=== PATIENT | male | born 1940 | race African-American/Black ===

== ENCOUNTER 2022-09-17 00:10 | Emergency (ER) | payer MEDICARE, OTHER, SELFPAY ==
--- NOTE | ~2022-09-17 | XR_ITS ---
EXAMINATION: XR pelvis 1-2V DATE: 09/17/2022 01:20 INDICATION: Pelvis injury. Fall. TECHNIQUE: An anteroposterior view of the pelvis was obtained. COMPARISON: None. FINDINGS: There is lumbar dextroscoliosis. There are changes of anterior and posterior fusion procedu res in lumbar spine. No fracture. There is mild osteoarthritis of the hips. IMPRESSION: 1. Mild osteoarthritis of the hips. Reviewed, dictated and finalized at location A.
--- NOTE | ~2022-09-17 | XR_ITS ---
EXAMINATION: XR chest 1V portable DATE: 09/17/2022 01:20 INDICATION: Fall. TECHNIQUE: A single frontal view of the chest was obtained. COMPARISON: None. FINDINGS: There is mild atelectasis in the lower lung zones. No pleural effusion or pneumothorax. The heart size is normal. There are surgical clips in the epigastric region. IMPRESSION: 1. Mild atelectasis in the lower lung zones. Reviewed, dictated and finalized at location A.
[2022-09-17 00:10] VITALS: BP 164/89; PULSE 90; RESP 23; TEMP 37.9; O2SAT 99
[2022-09-17] MEDS: ACETAMINOPHEN 500 MG TABLET 1000 MG PO (00:52)
[2022-09-17] MEDS: SODIUM CHLORIDE 0.9% IV 1,000 ML 999 ML IV CONT (00:52)
[2022-09-17 01:03] LABS: Basophils Absolute Auto 0.1 K/mm3 (0.0-0.1); Basophils Percent Auto 0.9 % (0.2-1.2); Eosinophils Absolute Auto 0.2 K/mm3 (0-0.3); Hematocrit 35.9 % (42.0-52.0); Hemoglobin 11.2 g/dL (14.0-18.0); Immature Granulocyte Absolute 0.02 K/mm3 (0.00-0.031); Immature Granulocyte Percent A 0.3 % (0-0.5); Lymphocytes Absolute Auto 0.91 K/mm3 (0.9-3.2); Lymphocytes Percent Auto 11.5 % (18.3-44.2); Mean Corpuscular HGB Conc 31.2 g/dl (32-36); Mean Corpuscular Hemoglobin 28.4 pg (26-34); Mean Corpuscular Volume 91.1 fl (80-100); Mean Platelet Volume 11.7 fl (7.4-10.4); Monocytes Absolute Auto 0.7 K/mm3 (0.1-0.6); Monocytes Percent Auto 9.2 % (2.6-8.5); Neutrophils Percent Auto 76.1 % (45.5-73.1); Platelet Count Result 229 k/mm3 (150-375); Red Blood Count 3.94 M/mm3 (4.6-6.20); Red Cell Distribution Width 16.6 % (11.5-14.5); White Blood Count 7.9 K/mm3 (4.5-10.0)
[2022-09-17 01:13] LABS: Anion Gap 1 mmol/L (8-16); Blood Urea Nitrogen 17 mg/dL (9-20); Calcium 9.6 mg/dL (8.4-10.2); Carbon Dioxide 32 mmol/L (22-30); Chloride 103 mmol/L (98-107); Estimated CRCL calculation 42 ml/min; Estimated Glomerular Filt Rate > 60; Glucose 88 mg/dL (65-110); Lipase 79 U/L (23-300); Magnesium 2.3 mg/dL (1.6-2.3); Potassium 3.9 mmol/L (3.4-5.0); Sodium 136 mmol/L (137-145)
[2022-09-17 01:14] LABS: Appearance Urine Cloudy (Clear); Bacteria Urine None Seen /hpf; Bilirubin Urine Negative (Negative); Blood Urine Negative (Negative); Color Urine Yellow (Yellow); Glucose Urine UA Negative (Negative); Ketones Urine Negative (Negative); Leukocyte Esterase Ur Negative LEU/UL (Negative); Nitrate Urine Negative (Negative); Non Pathogenic Casts 0-2; Protein Urine Negative (Negative); RBC Urine 0-2 /hpf (0-2); Specific Grav Ur 1.012 (1.001-1.035); Squamous Epithelial Cell Urine None seen /hpf (Few); Urobilinogen Urine 0.2 mg/dL (<2.0); WBC Urine 0-5 /hpf; pH Urine 7.5 (5.0-9.0)
[2022-09-17 01:20] LABS: Add Urine Microscopic? YES
[2022-09-17 01:39] LABS: Influenza A QL RT-PCR Negative (Negative); Influenza B QL RT-PCR Negative (Negative); RSV RNA, RT-PCR Negative (Negative); SARS-CoV-2 RNA PCR Positive (Negative)
[2022-09-17 02:08] VITALS: BP 163/95; PULSE 84; RESP 18; O2SAT 99
[2022-09-17 02:19] VITALS: TEMP 37.8
--- NOTE | 2022-09-17 02:25 | ED.GENADULT ---
HPI - General Adult General Chief complaint: Fall Stated complaint: fall Time Seen by Provider: 09/17/22 00:42 History of Present Illness HPI narrative: This an 82-year-old male presenting to ED after having a fall at home. Patient was tempted to go to the bathroom when he tripped. He then caught himself with his hands. Did not strike his head. Did not lose consciousness. Patient is denying fevers, chest pain difficulty breathing abdominal pain or urinary complaints. The family called EMS because they were unable to get him back up. EMS recommended he come to the hospital. At this time patient is resting comfortably with no complaints. Related Data Home Medications Medication Instructions Recorded Confirmed atorvastatin 40 mg tablet 40 mg PO DAILY 09/17/22 cyclobenzaprine 10 mg tablet 10 mg PO TID 09/17/22 gabapentin 300 mg capsule 300 mg PO BID 09/17/22 tamsulosin 0.4 mg PO DAILY 09/17/22 Allergies Allergy/AdvReac Type Severity Reaction Status Date / Time morphine Allergy Hives Verified 09/17/22 00:24 aspirin AdvReac Other Verified 09/17/22 00:24 [facility] Past Medical History Medical History (Updated 09/17/22 @ 02:43 by Joel Franco MD) Chronic back pain Exam Narrative: APPEARANCE: No apparent distress. Patient appears younger than his stated age Head: atraumatic. EYES: EOMI, NOSE: Atraumatic NECK: Trachea midline RESPIRATORY: No increased rate of breathing, clear to auscultation CARDIOVASCULAR: RRR, no peripheral edema ABDOMINAL: Non-distended, soft nontender no guarding or rebound MUSCULOSKELETAl: No obvious deformities NEURO: Alert. Cranial nerves 2-12 grossly intact. Sensation light touch, motor function cerebellar function intact for 4 extremities. Gait exam was normal. SKIN:: Warm, dry. Normal color PSYCHIATRIC: Normal affect Course Vital Signs Vital signs: Vital Signs Temperature 100.2 F H 09/17/22 00:10 Pulse Rate 90 09/17/22 00:10 Respiratory Rate 23 H 09/17/22 00:10 Blood Pressure 164/89 H 09/17/22 00:10 Pulse Oximetry 99 09/17/22 00:10 Oxygen Delivery Room Air 09/17/22 00:10 Temperature 100.0 F H 09/17/22 02:19 Pulse Rate 84 09/17/22 02:08 Respiratory Rate 18 09/17/22 02:08 Blood Pressure 163/95 H 09/17/22 02:08 Pulse Oximetry 99 09/17/22 02:08 Oxygen Delivery Room Air 09/17/22 00:10 Medical Decision Making [facility] Narrative Medical decision making narrative: -Presentation: 82-year-old male presenting with a fall at home. He was found to be mildly febrile in triage. Basic lab work, chest x-ray/pelvic XR, urinalysis and viral swabs will be obtained. -DDX includes but is not limited to: Pneumonia, UTI, viral syndrome, clickfracture -Co-morbidities complicating care: advanced age -Social determinants of health: patient lives with his Diamond, he is a retired computer programming supervisor -External Chart Review: none -Hx from independent Sources: Diamond @ bedside -Discussion of Management/Consultants: none -Independent interpretation of studies: CBC within normal limits. Metabolic panel is unremarkable. Urinalysis was not indicative of infection. COVID was positive. Chest x-ray was negative for acute cardiopulmonary process. Pelvis x-ray did not reveal a fracture. Dx tests considered but not ordered: -Procedures: -Interventions: 1 L normal saline, 1000 mg Tylenol -Shared decision making / Disposition: patient's workup was positive for COVID. The patient is not in respiratory distress and is well appearing. Vital signs stable. Chest x-ray and lung exam were normal.We did ambulate him around the emergency department and he did well without issue. I discussed discharge with the family with the caveat that if he is to worsen he should return immediately. They are in agreement. -RX Vital Signs Vital Signs: Vital Signs Temperature 100.2 F H 09/17/22 00:10 Pulse Rate 90 09/17/22 00:10 R
--- NOTE | 2022-09-17 02:32 | PC.NURSE ---
Ambulated pt around ED. Pt had steady gait the entire time. No difficulty walking or dizziness. Provider aware.
[2022-09-17 02:54] VITALS: BP 131/91; PULSE 86; RESP 18; TEMP 37.3; O2SAT 99
== END 2022-09-17 02:54 | disposition home or self-care (01) ==
PROVIDERS: Emergency Provider Emergency Medicine
DX: U07.1 COVID-19 (principal); G89.29 Other chronic pain; W01.0XXA Fall on same level from slipping, tripping and stumbling without subsequent striking against object, initial encounter
CPT/HCPCS: 36415; 71045; 72170; 80048; 81001; 83690; 83735; 85025; 87637; 96360; 99284; A9270; J7030